=== PATIENT | male | born 1995 | race African-American/Black ===

== ENCOUNTER 2025-03-11 21:59 | Emergency (ER) | payer SELFPAY ==
[~2025-03-11] VITALS: Ht 188 cm; Wt 127.0 kg
[2025-03-11 22:05] VITALS: BP 160/80; PULSE 120; RESP 16; O2SAT 98
== END 2025-03-11 23:01 | disposition left against medical advice (07) ==
LOC: ER 21:59
DX: F10.129 Alcohol abuse with intoxication, unspecified (principal); I10 Essential (primary) hypertension; Y90.9 Presence of alcohol in blood, level not specified
CPT/HCPCS: 99283